=== PATIENT | male | born 1985 | race African-American/Black ===

== ENCOUNTER 2016-10-01 12:32 | Emergency (ER) | payer OTHER, SELFPAY ==
[~2016-10-01] VITALS: Ht 182.9 cm; Wt 81.6 kg
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
[2016-10-01 13:06] VITALS: BP 145/94
== END 2016-10-01 13:09 ==
LOC: EDBD 12:32 → EMR 13:01
DX: M54.5 Low back pain (principal); F20.9 Schizophrenia, unspecified; R00.0 Tachycardia, unspecified
CPT/HCPCS: 99283